=== PATIENT | female | born 1990 | race American Indian/Alaskan Native ===

== ENCOUNTER 2018-11-24 17:30 | Emergency (ER) | payer BC ==
[2017-11-09 16:53] VITALS: BMI 32.5
--- NOTE | 2018-11-24 19:24 | OBHP ---
Datetime: 11/24/2018 18:06 IP Adm Impression: Term, intrauterine IP Admit Plan: Observation/Evaluation Admit Comment, IP Provider: 28yo at 39.5wks FAN: 11/26/18 per patient presents with complaint of uterine contractions since 1:30pm. Pt denies leakage of fluid, vaginal bleeding and reports movements. PNC: Dr. Hi POb: G1: TOP D_C G2: current , no complications PGYN: LMP: 12/2017 denies STIs, fibroids, cysts PMhx: denies ALL: NKDA Meds: PNV SHX: denies x 3 FHX: denies A/P: 28yo at 39.5wks- R/o labor VSS, initial BP elevated but subsequent WNL no s/s PEC at this time Early labor- Per conversation between patient and private MD- Pt to be discharged. d/w Dr. Hi Pelvic Type - PN: Adequate Abdomen - PN: Normal FHR - Baseline A Provider: 150 Membranes, Provider: Intact Comments, ACOG Physical Exam: Abd: gravid Pelvic: SVE: 2/80/-3 Gestation - Est Wks by US: 39.5 EGA AdmitDate IP: 39.5 IP Chief Complaint: Uterine contractions NICHD Variability Prov Fetus A: Moderate 6-25bpm NICHD Accel Fetus A IP Provider: 15X15 FHR Category Provider Fetus A: Category I NICHD Decel Fetus A IP Provider: Variable Dilatation, Provider: 2 Effacement, Provider: 80 Station, Provider: -3
[2018-11-24 23:49] VITALS: BP 121/60; PULSE 92; TEMP 98.5; O2SAT 99
== END 2018-11-24 19:06 | disposition home or self-care (01) ==
LOC: C.EROB 17:30
DX: O47.1 False labor at or after 37 completed weeks of gestation (principal); Z3A.39 39 weeks gestation of pregnancy